=== PATIENT | female | born 1960 | race African-American/Black ===

== ENCOUNTER 2016-11-13 23:51 | Emergency (ER) | payer MEDICAID ==
[2016-11-14 00:20] LABS: % EOSINOPHILS 0.7 % (0.0-5.0); % MONOCYTES 2.3 % (2.0-10.0); HEMATOCRIT 37.4 % (41.0-60); HEMOGLOBIN 12.7 gm/dL (12-16); MEAN CORPUSCULAR HEMOGLOBIN 27.5 pg (27.0-31.0); MEAN PLATELET VOLUME 8.6 fl; NEUTROPHILE ABSOLUTE 8.2 Th/cmm (1.8-8.0); RED BLOOD COUNT 4.61 Mil/cmm (3.80-5.10); RED CELL DISTRIBUTION WIDTH 13.8 % (11.5-20.0)
[2016-11-14] MEDS ORDERED: Sodium Chloride 0.9% 1,000 ML IV SCH (00:30)
--- NOTE | 2016-11-14 00:33 | ED Physician Chart ---
ED Chief Complaint/HPI - Patient Information Date Seen:: 11/14/16 Time Seen:: 00:15 Chief Complaint:: vomiting and diarrhea History of Present Illness:: location; abdomen quality: vomiting and diarrhea severity: mild, mod duration: couple of hours context: pt with onset of diarrhe and vomiting and stomach cramps simultaneously about one hour after eating some chicken. reports vomiting essentially undigested food. pain is sharp, crampy located at mid abdomen, no fever, no chest pain, no sob. no flank pain. no dysuria. did not take anything for this pain. mod factors: none assoc s/s; none hx from pt. Allergies:: Allergies Allergy/AdvReac Type Severity Reaction Status Date / Time No Known Allergies Allergy Verified 11/13/16 23:57 Vitals:: Vital Signs - 8 hr 11/13/16 23:55 Temp 97.2 F HR 85 RR 20 BP 170/130 O2 Sat % 96 Historian:: Patient Review:: Nurse's Note Reviewed ED Review of Systems - Review of Systems General/Constitutional: No fever, No chills, No weight loss, No weakness, No diaphoresis, No edema, No loss of appetite Skin: No skin lesions, No rash, No bruising Head: No headache, No light-headedness Eyes: No loss of vision, No pain, No diplopia ENT: No earache, No nasal drainage, No sore throat, No tinnitus Neck: No neck pain, No swelling, No thyromegaly, No stiffness, No mass noted Cardio Vascular: No chest pain, No palpitations, No PND, No orthopnea, No edema Pulmonary: No SOB, No cough, No sputum, No wheezing GI: Nausea, Vomiting, Diarrhea, Pain, No melena, No hematochezia, No constipation, No hematemesis G/U: No dysuria, No frequency, No hematuria Musculoskeletal: No bone or joint pain, No back pain, No muscle pain Endocrine: No polyuria, No polydipsia Psychiatric: No prior psych history, No depression, No anxiety, No suicidal ideation Hematopoietic: No bruising, No lymphadenopathy Allergic/Immuno: No urticaria, No angioedema Neurological: No syncope, No focal symptoms, No weakness, No paresthesia, No headache, No seizure, No dizziness, No confusion, No vertigo ED Past Medical History - Past Medical History Past Medical History: Renal stone Family History: None Social History: Non Smoker, No Alcohol, No Drug Use, Surgical History: other (BTL) Psychiatricy History: None Medication: None Family Medical History - Family Member Mother History Unknown: Yes Father History Unknown: Yes Ethnicity: Non- Living Status: Hx Family Hypertension: Yes ED Physical Exam - Physical Examination General/Constitutional: Awake, Well-developed, well-nourished, Alert, No distress, GCS 15, Non-toxic appearing, Ambulatory Head: Atraumatic Eyes: Lids, conjuctiva normal, PERRL, EOMI Skin: Nl inspection, No rash, No skin lesions, No ecchymosis, Well hydrated, No lymphadenopathy ENMT: External ears, nose nl, Nasal exam nl, Lips, teeth, gums nl Neck: Nontender, Full ROM w/o pain, No JVD, No nuchal rigidity, No bruit, No mass, No stridor Respiratory: Nl effort/Exclusion, Clear to Auscultation, No Wheeze/Rhonchi/Rales Cardio Vascular: RRR, No murmur, gallop, rubs, NL S1 S2 GI: No tenderness/rebounding/guarding (mild tenderness epigastrium, no rebound, no guarding. ), No organomegaly, No hernia, Normal BS's, Nondistended, No mass/ bruits, No McBurney tenderness : No CVA tenderness Extremities: No tenderness or effusion, Full ROM, normal strength in all extremities, No edema, Normal digits & nails Neuro/Psych: Alert/oriented, Judgement/insight normal, Mood normal, Normal gait , No focal deficits Misc: Normal back, No paraspinal tenderness ED Assessment - Assessment General Assessment: medical decision making pt with history and exam consistent with food poisoning. pt has known history of kidney stone right side, no right sided flank pain. or left sided flank pain. was seen in [facility] one month ago with abdominal pain had CT scan was told CT scan was normal. labs essentially WNL, symptoms started about 2 or 3 hours ago. will treat at food poisoning/traveler's diarrhea. will give cipro 500mg po bid x 5 days script. and advise liquids only for 3 days and then slow transition to regular food over next 3 days. pt states she understands and will follow physician advice. advised to FU with physician tomorrow or return sooner for any worsening. ED Septic Shock - . Is Septic Shock (SBP<90, OR Lactate>4 mmol\L) present?: No - <6hrs of presentation: Vital Signs: Vital Signs - 8 hr 11/13/16 23:55 Temp 97.2 F HR 85 RR 20 BP 170/130 O2 Sat % 96 ED Reassessment (Disposition) - Reassessment Reassessment:: pt stable while in ER Reassessment Condition:: Unchanged, Improved - Diagnosis Diagnosis:: Food poisoning/traveler's diarrhea - Aftercare/Follow up Instructions Aftercare/Follow-Up Instructions:: Counseled pt regarding lab results/diagnosis & need follow up, Refer to Discharge Instructions Notes:: go to doctor for recheck tomorrow return for any worsening Medication Prescribed:: ciprofloxacin 500mg po bid x 5 days - Patient Disposition Discharge/Transfer:: Home Condition at Disposition:: Stable, Improved
[2016-11-14 00:34] LABS: WHITE BLOOD COUNT 10.3 Th/cmm (4.8-10.8)
[2016-11-14 00:35] LABS: PLATELET COUNT 362 Th/cmm (150-400)
[2016-11-14 01:01] LABS: ALB/GLOB RATIO 1.4 (1.0-1.8); ALKALINE PHOSPHATASE 84 U/L (34-104); AMYLASE SERUM 45 U/L (29-103); ANION GAP 12.8 (7.0-16.0); BILIRUBIN,TOTAL 0.5 mg/dL (0.3-1.0); BUN - UREA NITROGEN 14 mg/dL (7-25); BUN/CREATININE RATIO 17.5; CARBON DIOXIDE 24.4 mEq/L (21.0-31.0); CHLORIDE 101 mEq/L (98-107); CREATININE - SERUM 0.8 mg/dL (0.6-1.2); GLUCOSE 126 mg/dL (70-105); LIPASE 23 U/L (11-82); POTASSIUM SERUM 3.2 mEq/L (3.5-5.1); SGOT 21 U/L (13-39); SGPT/ALT 8 U/L (7-52); SODIUM SERUM 135 mEq/L (136-145)
[2016-11-14] MEDS ORDERED: HYDROmorphone 1 mg/mL 1mL Syr IM STA (01:20)
[2016-11-14] MEDS ORDERED: HYDROmorphone 1 mg/mL 1mL Syr ONE (01:30)
== END 2016-11-14 02:11 | disposition home or self-care (01) ==
LOC: ER 23:51
DX: A08.8 Other specified intestinal infections (principal); T62.91XA Toxic effect of unspecified noxious substance eaten as food, accidental (unintentional), initial encounter; Y92.89 Other specified places as the place of occurrence of the external cause
CPT/HCPCS: 99284; 96372 ×2; 96374; 96375; 36415; 85025; 82150; 83690; 80053; J1885; J2405; J1170; J7030; Z7502

== ENCOUNTER 2018-03-25 03:45 | Inpatient (IN) | payer MEDICAID ==
[2018-03-25] MEDS ORDERED: Sodium Chloride 0.9% 1,000 ML IV ONE (04:22)
--- NOTE | 2018-03-25 04:24 | ED Physician Chart ---
ED Chief Complaint/HPI - Patient Information Date Seen:: 03/25/18 Time Seen:: 04:20 Chief Complaint:: vomiting diarhea History of Present Illness:: 58 yr old bf with vomiting diarhea was at [facility] and they gave her bactrim and flagyl which may have made her sxs worse Allergies:: Allergies Allergy/AdvReac Type Severity Reaction Status Date / Time No Known Allergies Allergy Verified 11/13/16 23:57 Vitals:: Vital Signs - 8 hr 03/25/18 03:50 Temp 98.1 F HR 93 RR 18 BP 154/101 O2 Sat % 100 ED Review of Systems - Review of Systems General/Constitutional: No fever, No chills, No weight loss, No weakness, No diaphoresis, No edema, No loss of appetite Skin: No skin lesions, No rash, No bruising Head: No headache, No light-headedness Eyes: No loss of vision, No pain, No diplopia ENT: No earache, No nasal drainage, No sore throat, No tinnitus Neck: No neck pain, No swelling, No thyromegaly, No stiffness, No mass noted Cardio Vascular: No chest pain, No palpitations, No PND, No orthopnea, No edema Pulmonary: No SOB, No cough, No sputum, No wheezing GI: Vomiting, Diarrhea G/U: No dysuria, No frequency, No hematuria Musculoskeletal: No bone or joint pain, No back pain, No muscle pain Endocrine: No polyuria, No polydipsia Psychiatric: No prior psych history, No depression, No anxiety, No suicidal ideation Hematopoietic: No bruising, No lymphadenopathy Allergic/Immuno: No urticaria, No angioedema Neurological: No syncope, No focal symptoms, No weakness, No paresthesia, No headache, No seizure, No dizziness, No confusion, No vertigo ED Past Medical History - Past Medical History Past Medical History: HTN Family Medical History - Family Member Mother History Unknown: Yes Father History Unknown: Yes Ethnicity: Non- Living Status: Still Living Hx Family Cancer: No Hx Family Coronary Artery Disease: No Hx Family Congestive Heart Failure: No Hx Family Hypertension: No Hx Family Stroke: No Hx Family Diabetes: Yes Hx Family Seizures: No Hx Family Dementia: No Hx Family AIDS: No Hx Family HIV: No Hx Family COPD: No Hx Family Hepatitis: No Hx Family Psychiatric Problems: No Hx Family Tuberculosis: No ED Physical Exam - Physical Examination General/Constitutional: Awake, Well-developed, well-nourished, Alert, No distress, GCS 15, Non-toxic appearing, Ambulatory Head: Atraumatic Eyes: Lids, conjuctiva normal, PERRL, EOMI Skin: Nl inspection, No rash, No skin lesions, No ecchymosis, Well hydrated, No lymphadenopathy ENMT: External ears, nose nl, Nasal exam nl, Lips, teeth, gums nl Neck: Nontender, Full ROM w/o pain, No JVD, No nuchal rigidity, No bruit, No mass, No stridor Respiratory: Nl effort/Exclusion, Clear to Auscultation, No Wheeze/Rhonchi/Rales Cardio Vascular: RRR, No murmur, gallop, rubs, NL S1 S2 GI: No tenderness/rebounding/guarding, No organomegaly, No hernia, Normal BS's, Nondistended, No mass/bruits, No McBurney tenderness : No CVA tenderness Extremities: No tenderness or effusion, Full ROM, normal strength in all extremities, No edema, Normal digits & nails Neuro/Psych: Alert/oriented, DTR's symmetric, Normal sensory exam, Normal motor strength, Judgement/insight normal, Mood normal, Normal gait, No focal deficits Misc: Normal back, No paraspinal tenderness ED Assessment - Assessment General Assessment: vomiting diarhea ED Septic Shock - . Is Septic Shock (SBP<90, OR Lactate>4 mmol\L) present?: No - <6hrs of presentation: Vital Signs: Vital Signs - 8 hr 03/25/18 03:50 Temp 98.1 F HR 93 RR 18 BP 154/101 O2 Sat % 100 ED Reassessment (Disposition) - Reassessment Reassessment:: vomiting diarhea - Diagnosis Diagnosis:: vomiting diarhea dark urine - Patient Disposition Condition at Disposition:: Stable
[2018-03-25 04:47] LABS: % BASOPHILS 0.3 % (0.0-2.0); % EOSINOPHILS 11.8 % (0.0-5.0); % MONOCYTES 9.5 % (2.0-10.0); % NEUTROPHILS 66.4 % (40.0-80.0); HEMATOCRIT 42.4 % (41.0-60); HEMOGLOBIN 13.8 gm/dL (12-16); MEAN CELL VOLUME 80.8 fl (81-100); MEAN CORPUSCULAR HEMOGLOBIN 26.2 pg (27.0-31.0); MEAN CORPUSCULAR HGB CONC 32.4 pg (28.0-36.0); MEAN PLATELET VOLUME 9.2 fl; MONOCYTE ABSOLUTE 0.8 Th/cmm (0.3-1.0); NEUTROPHILE ABSOLUTE 5.7 Th/cmm (1.8-8.0); PLATELET COUNT 336 Th/cmm (150-400); RED BLOOD COUNT 5.25 Mil/cmm (3.80-5.10); RED CELL DISTRIBUTION WIDTH 13.5 % (11.5-20.0); WHITE BLOOD COUNT 8.5 Th/cmm (4.8-10.8)
[2018-03-25 04:49] LABS: URINE SOURCE CLEAN C
[2018-03-25] MEDS ORDERED: Acetaminophen 500 MG TAB PO ONE (04:51)
[2018-03-25] MEDS ORDERED: Acetaminophen 500 MG TAB ONE (04:53)
[2018-03-25 05:00] LABS: URINE BILIRUBIN SMALL (NEGATIVE); URINE BLOOD TRACE (NEGATIVE); URINE GLUCOSE (UA) NEGATIVE (NEGATIVE); URINE KETONE 40 mg/dL (NEGATIVE); URINE LEUKOCYTE ESTERASE TRACE (NEGATIVE); URINE MICROSCOPIC INDICATED? YES; URINE NITRATE POSITIVE (NEGATIVE); URINE PROTEIN 30 mg/dL (NEGATIVE)
[2018-03-25 05:03] LABS: ALB/GLOB RATIO 1.7 (1.0-1.8); ALBUMIN 4.7 gm/dL (3.7-5.3); ALKALINE PHOSPHATASE 80 U/L (34-104); ANION GAP 13.8 (7.0-16.0); BILIRUBIN,TOTAL 0.4 mg/dL (0.3-1.0); BUN - UREA NITROGEN 9 mg/dL (7-25); CALCIUM SERUM 9.5 mg/dL (8.6-10.3); CARBON DIOXIDE 24.2 mEq/L (21.0-31.0); CHLORIDE 99 mEq/L (98-107); CREATININE - SERUM 0.9 mg/dL (0.6-1.2); GFR AFRICAN-AMERICAN > 60.0 ml/min (>90); GFR NON AFRICAN-AMERICAN > 60.0 ml/min; GLUCOSE 121 mg/dL (70-105); SGOT 16 U/L (13-39); SGPT/ALT 7 U/L (7-52); SODIUM SERUM 134 mEq/L (136-145); TOTAL PROTEIN,SERUM 7.4 gm/dL (6.0-8.3)
[2018-03-25] MEDS ORDERED: Potassium Chloride 20 mEq ER Tab PO ONE ×2 (05:44→05:47)
[2018-03-25 05:55] LABS: URINE CLARITY CLOUDY (CLEAR); URINE COLOR YELLOW
[2018-03-25 05:58] LABS: URINE EPITHELIAL CELLS RARE /lpf (FEW); URINE RBC 0-2 /hpf (0-5); URINE WBC 0-2 /hpf (0-5)
[2018-03-25 05:59] LABS: URINE OTHER CRYSTALS MODERATE /hpf
[2018-03-25 06:00] LABS: URINE BACTERIA OCCASIONAL /hpf (NONE SEEN)
[2018-03-25 06:03] LABS: URINE TRIPLE PHOSPHATE CRYSTAL MODERATE /hpf (FEW)
[2018-03-25] MEDS ORDERED: cefTRIAXone 1 GM in Sodium Chloride 0.9% 50 ML IV ONE (07:15)
[2018-03-25] MEDS ORDERED: Morphine Sulfate 2 mg/mL 1mL Syr IVP PRN (07:58)
[2018-03-25] MEDS ORDERED: Ipratropium Neb 0.5 mg/2.5 mL UD IH PRN (07:58)
[2018-03-25] MEDS ORDERED: Albuterol Nebulizer 2.5mg/3mL HHN PRN (07:58)
--- NOTE | 2018-03-25 09:15 | Diagnostic Imaging Report ---
CT scan abdomen and pelvis without intravenous contrast HISTORY: Diarrhea, vomiting Total DLP equals 431 CTDI equals 9.8 Axial sections were obtained from the xiphoid process down to the pubic symphysis. The liver exhibits a normal size and contour. No focal lesions. The spleen appears normal. No focal abnormality seen within the pancreas. There is an approximate 6 mm calculus within the medullary region of the right kidney without hydronephrosis. No significant change compared to a prior study of January 28, 2017. The left kidney is unremarkable. The exam of the pelvis demonstrates preservation of normal fat planes. No abnormal soft tissue masses or abnormal fluid collections. No bowel dilatation. IMPRESSION: 1. No definite acute abnormalities 2. Nonobstructing right renal calculus unchanged compared to a prior study of January 28, 2017.
[2018-03-25] MEDS: Levofloxacin 500mg/100mL 500 MG/100 ML BAG IV SCH (09:41)
[2018-03-25] MEDS: D5-0.9%NS 1,000 ML IV SCH ×2 (09:42→22:03)
--- NOTE | 2018-03-25 13:40 | History & Physical ---
ADMIT DATE: 03/25/2018 CHIEF COMPLAINT: Vomiting and diarrhea x 1 week. HISTORY OF PRESENT ILLNESS: This is a 58-year-old -[place]inames[place] female who has a 1-week history of vomiting and diarrhea. The patient was recently at [facility] for chronic constipation, vomiting, diarrhea. The patient states that she was constipated for about 2 months and she took some laxative that made her have intractable vomiting and diarrhea. When the patient was brought to [facility], the patient was given Bactrim and Flagyl for urinary tract infection. The patient states that she was not admitted. Due to her worsening symptoms the patient is now here at [facility]. PAST MEDICAL HISTORY: Hypertension. ALLERGIES: No drug allergies. SOCIAL HISTORY: The patient denies any alcohol or illicit drug usage. FAMILY HISTORY: Denies any diabetes or CAD. REVIEW OF SYSTEMS: GENERAL: Denies any fever and chills. CARDIOVASCULAR: Denies chest pain. RESPIRATORY: Denies shortness of breath. GASTROINTESTINAL: Denies nausea, vomiting, abdominal pain at this time. GENITOURINARY: Denies increased frequency. NEUROLOGIC: No headaches, seizures, or syncope. All systems are reviewed and are negative. PHYSICAL EXAMINATION: GENERAL: The patient is well developed, well nourished, in no apparent distress. VITAL SIGNS: Temperature 99.9, heart rate 76, blood pressure 176/90, respirations 18, O2 of 100%. HEENT: Head normocephalic, atraumatic. NECK: Supple. No mass. LUNGS: Clear bilaterally. HEART: Regular rhythm. ABDOMEN: Soft, nontender. LABORATORY DATA: WBC 8.5, H and H 13.8 and 42.4, platelets of 336. Sodium 134, potassium 3.0, chloride 99, BUN 9, creatinine 0.9. The patient had a urinalysis done, positive for UTI. DIAGNOSTICS: The patient had a CT of the abdomen and pelvis, impression is no definite acute abnormalities, nonobstructive right renal calculus, unchanged compared to prior study of 01/28/2017. ASSESSMENT: Intractable vomiting, which is stable at this time, acute kidney stones, acute urinary tract infection, hyponatremia, hypokalemia, hypertension. PLAN: The patient to be admitted to Med/Surg unit. We would give the patient IV fluids for hydration. Nurses to strain urine for any possible stones. IV antibiotic of Levaquin. Replace potassium as needed. We will get followup labs for tomorrow morning. Due to the patient's elevated blood pressure, we will add lisinopril and Norvasc as well. We will continue to monitor this patient. JOB# [id number]
[2018-03-26 06:20] LABS: EOSINOPHILE ABSOLUTE 1.2 Th/cmm (0.1-0.4); HEMATOCRIT 35.3 % (41.0-60); HEMOGLOBIN 11.7 gm/dL (12-16); MEAN CELL VOLUME 81.3 fl (81-100); MEAN CORPUSCULAR HGB CONC 33.2 pg (28.0-36.0); MEAN PLATELET VOLUME 8.7 fl; MONOCYTE ABSOLUTE 1.1 Th/cmm (0.3-1.0); NEUTROPHILE ABSOLUTE 2.2 Th/cmm (1.8-8.0); PLATELET COUNT 256 Th/cmm (150-400); RED BLOOD COUNT 4.34 Mil/cmm (3.80-5.10); WHITE BLOOD COUNT 5.5 Th/cmm (4.8-10.8)
[2018-03-26 06:39] LABS: ANION GAP 10.2 (7.0-16.0); BUN - UREA NITROGEN 3 mg/dL (7-25); CALCIUM SERUM 8.6 mg/dL (8.6-10.3); CARBON DIOXIDE 24.3 mEq/L (21.0-31.0); CHLORIDE 108 mEq/L (98-107); CREATININE - SERUM 0.7 mg/dL (0.6-1.2); GFR AFRICAN-AMERICAN > 60.0 ml/min (>90); GFR NON AFRICAN-AMERICAN > 60.0 ml/min; GLUCOSE 110 mg/dL (70-105); POTASSIUM SERUM 3.5 mEq/L (3.5-5.1); SODIUM SERUM 139 mEq/L (136-145)
[2018-03-26 07:18] LABS: BAND NEUTROPHILE 0 % (0-10); BASOPHIL 0 % (0-3); EOSINOPHIL 18 % (0-5); LYMPHOCYTE 20 % (20-50); MONOCYTE 20 % (2-10); NEUTROPHILS 42 % (40-80)
[2018-03-26 07:56] VITALS: BP 180/94
[2018-03-26] MEDS: Levofloxacin 500mg/100mL 500 MG/100 ML BAG IV SCH (11:36)
--- NOTE | 2018-03-26 14:40 | Internal Medicine Prog Note ---
Internal Medicine Subjective - Subjective Service Date: 03/26/18 (denies any nausea/vomiting or abd pain asking for regular diet) Patient is:: awake, verbal Per staff patient has:: tolerating meds Internal Medicine Objective - Results Result Diagrams: 03/26/18 05:30 03/26/18 05:30 Recent Labs: Laboratory Last Values WBC 5.5 Th/cmm (4.8-10.8) 03/26/18 05:30 RBC 4.34 Mil/cmm (3.80-5.10) 03/26/18 05:30 Hgb 11.7 gm/dL (12-16) L 03/26/18 05:30 Hct 35.3 % (41.0-60) L 03/26/18 05:30 MCV 81.3 fl (81-100) 03/26/18 05:30 MCH 27.0 pg (27.0-31.0) 03/26/18 05:30 MCHC Differential 33.2 pg (28.0-36.0) 03/26/18 05:30 RDW 14.0 % (11.5-20.0) 03/26/18 05:30 Plt Count 256 Th/cmm (150-400) 03/26/18 05:30 MPV 8.7 fl 03/26/18 05:30 Add Manual Diff YES 03/26/18 05:30 Neutrophils % 66.4 % (40.0-80.0) 03/25/18 04:35 Band Neutrophils % 0 % (0-10) 03/26/18 05:30 Lymphocytes % 12.0 % (20.0-50.0) L 03/25/18 04:35 Monocytes % 9.5 % (2.0-10.0) 03/25/18 04:35 Eosinophils % 11.8 % (0.0-5.0) H 03/25/18 04:35 Basophils % 0.3 % (0.0-2.0) 03/25/18 04:35 Neutrophils (Manual) 42 % (40-80) 03/26/18 05:30 Lymphocytes 20 % (20-50) 03/26/18 05:30 Monocytes 20 % (2-10) H 03/26/18 05:30 Eosinophils 18 % (0-5) H 03/26/18 05:30 Basophils 0 % (0-3) 03/26/18 05:30 Sodium 139 mEq/L (136-145) 03/26/18 05:30 Potassium 3.5 mEq/L (3.5-5.1) 03/26/18 05:30 Chloride 108 mEq/L (98-107) H 03/26/18 05:30 Carbon Dioxide 24.3 mEq/L (21.0-31.0) 03/26/18 05:30 Anion Gap 10.2 (7.0-16.0) 03/26/18 05:30 BUN 3 mg/dL (7-25) L 03/26/18 05:30 Creatinine 0.7 mg/dL (0.6-1.2) 03/26/18 05:30 Est GFR ( Amer) > 60.0 ml/min (>90) 03/26/18 05:30 Est GFR (Non-Af Amer) > 60.0 ml/min 03/26/18 05:30 BUN/Creatinine Ratio 4.3 03/26/18 05:30 Glucose 110 mg/dL (70-105) H 03/26/18 05:30 POC Glucose 146 MG/DL (70 - 105) H 03/25/18 08:36 Calcium 8.6 mg/dL (8.6-10.3) 03/26/18 05:30 Total Bilirubin 0.4 mg/dL (0.3-1.0) 03/25/18 04:35 AST 16 U/L (13-39) 03/25/18 04:35 ALT 7 U/L (7-52) 03/25/18 04:35 Alkaline Phosphatase 80 U/L (34-104) 03/25/18 04:35 Total Protein 7.4 gm/dL (6.0-8.3) 03/25/18 04:35 Albumin 4.7 gm/dL (3.7-5.3) 03/25/18 04:35 Globulin 2.7 gm/dL 03/25/18 04:35 Albumin/Globulin Ratio 1.7 (1.0-1.8) 03/25/18 04:35 Urine Source CLEAN C 03/25/18 04:09 Urine Color YELLOW 03/25/18 04:09 Urine Clarity CLOUDY (CLEAR) H 03/25/18 04:09 Urine pH 6.0 (4.6 - 8.0) 03/25/18 04:09 Ur Specific [place] >= 1.030 (1.005-1.030) 03/25/18 04:09 Urine Protein 30 mg/dL (NEGATIVE) H 03/25/18 04:09 Urine Glucose (UA) NEGATIVE mg/dL (NEGATIVE) 03/25/18 04:09 Urine Ketones 40 mg/dL (NEGATIVE) H 03/25/18 04:09 Urine Blood TRACE (NEGATIVE) 03/25/18 04:09 Urine Nitrate POSITIVE (NEGATIVE) H 03/25/18 04:09 Urine Bilirubin SMALL (NEGATIVE) H 03/25/18 04:09 Urine Urobilinogen 1.0 E.U./dL (0.2 - 1.0) 03/25/18 04:09 Ur Leukocyte Esterase TRACE (NEGATIVE) H 03/25/18 04:09 Urine RBC 0-2 /hpf (0-5) 03/25/18 04:09 Urine WBC 0-2 /hpf (0-5) 03/25/18 04:09 Ur Epithelial Cells RARE /lpf (FEW) 03/25/18 04:09 Triple Phos Crystals MODERATE /hpf (FEW) 03/25/18 04:09 Other Crystals MODERATE /hpf 03/25/18 04:09 Urine Bacteria OCCASIONAL /hpf (NONE SEEN) 03/25/18 04:09 - Physical Exam Vitals and I&O: Vital Signs Temp 99.6 F 03/26/18 11:20 Pulse 78 03/26/18 11:20 Resp 18 03/26/18 11:20 BP 177/95 03/26/18 11:20 Pulse Ox 99 03/26/18 11:20 Intake & Output 03/25/18 03/26/18 03/26/18 18:59 06:59 18:59 Intake Total 100 1480 Balance 100 1480 Weight (lbs) 150 lb 157 lb 12.8 oz Intake: Intake, IV Amount 100 1000 D5-0.9%Ns 1,000 ml @ 100 1000 mls/hr IV .Q10H [facility] Rx#: [id number] Levofloxacin 500mg/100mL 100 500 mg In 100 ml @ 100 mls/hr IV Q24HR [facility] Rx#: [id number] Oral 480 Other: # Voids 3 # Bowel Movements 0 Weight Source Bedscale Active Medications: Current Medications Acetaminophen (Tylenol) 650 mg PO Q4H PRN PRN Reason: Pain Or Fever above 101 Stop: 05/24/18 07:57 Last Admin: 03/25/18 20:28 Dose: 650 mg Albuterol Sulfate (Albuterol 2.5mg/3ml Neb Ud) 2.5 mg HHN Q2HRT PRN PRN Reason: Shortness of Breath or Wheeze Stop: 05/24/18 07:57 Last Admin: 03/25/18 20:28 Dose: 2.5 mg Amlodipine Besylate (Norvasc) 5 mg PO DAILY [facility] Stop: 05/24/18 13:29 Last Admin: 03/26/18 08:15 Dose: 5 mg Dextrose/Sodium Chloride (D5-0.9%Ns) 1,000 mls @ 100 mls/hr IV .Q10H [facility] Stop: 05/24/18 07:59 Last Admin: 03/25/18 22:03 Dose: 100 mls/hr Levofloxacin (Levaquin Pb) 500 mg in 100 mls @ 100 mls/hr IV Q24HR [facility] Stop: 05/24/18 09:59 Last Admin: 03/26/18 11:36 Dose: 100 mls/hr Ipratropium Brea (Atrovent Neb 0.5mg/2.5ml) 0.5 mg IH Q2HRT PRN PRN Reason: Shortness of Breath or Wheeze Stop: 05/24/18 07:57 Last Admin: 03/25/18 20:28 Dose: 0.5 mg Lisinopril (Zestril) 20 mg PO DAILY [facility] Stop: 05/24/18 13:29 Last Admin: 03/26/18 08:15 Dose: 20 mg Morphine Sulfate (Morphine) 1 mg IVP Q6H PRN PRN Reason: Pain (Severe) Stop: 05/24/18 07:57 Ondansetron HCl (Zofran) 4 mg IV Q8H PRN PRN Reason: Nausea / Vomiting Stop: 05/24/18 07:57 Zolpidem Tartrate (Ambien) 10 mg PO HS PRN PRN Reason: Insomnia Stop: 05/24/18 07:57 Last Admin: 03/25/18 22:38 Dose: 10 mg General: alert HEENT: NC/AT, PERRLA Neck: Supple Lungs: CTAB Cardiovascular: RRR Abdomen: soft, non-tender Extremities: clear Neurological: alert - Procedures Procedures: Procedures Procedure Code Date EXCISION OF STOMACH, ENDO, DIAGN [id number] 01/12/16 Internal Medicine Assmt/Plan - Assessment Assessment: ASSESSMENT: Intractable vomiting, which is stable at this time, acute kidney stones, acute urinary tract infection, hyponatremia, hypokalemia, hypertension. - Plan Plan: switch diet to cardiac diet as patient is not having any nausea continue iv levaquin am labs dc planning tmw if no interventions will be done re. kidney stones. continue ivf
[2018-03-26] MEDS: D5-0.9%NS 1,000 ML IV SCH (17:01)
[2018-03-27] MEDS: D5-0.9%NS 1,000 ML IV SCH (03:29)
[2018-03-27 05:15] LABS: HEMATOCRIT 35.4 % (41.0-60); HEMOGLOBIN 11.5 gm/dL (12-16); MEAN CELL VOLUME 82.3 fl (81-100); MEAN CORPUSCULAR HEMOGLOBIN 26.7 pg (27.0-31.0); MEAN CORPUSCULAR HGB CONC 32.4 pg (28.0-36.0); MEAN PLATELET VOLUME 8.9 fl; PLATELET COUNT 261 Th/cmm (150-400); RED CELL DISTRIBUTION WIDTH 14.3 % (11.5-20.0); WHITE BLOOD COUNT 4.9 Th/cmm (4.8-10.8)
[2018-03-27 05:17] LABS: ANION GAP 11.4 (7.0-16.0); BUN - UREA NITROGEN 3 mg/dL (7-25); CALCIUM SERUM 8.6 mg/dL (8.6-10.3); CARBON DIOXIDE 25.6 mEq/L (21.0-31.0); CHLORIDE 105 mEq/L (98-107); CREATININE - SERUM 0.6 mg/dL (0.6-1.2); GFR AFRICAN-AMERICAN > 60.0 ml/min (>90); GFR NON AFRICAN-AMERICAN > 60.0 ml/min; GLUCOSE 120 mg/dL (70-105); SODIUM SERUM 139 mEq/L (136-145)
[2018-03-27 05:55] LABS: BAND NEUTROPHILE 6 % (0-10); EOSINOPHIL 8 % (0-5); LYMPHOCYTE 30 % (20-50); MONOCYTE 8 % (2-10); NEUTROPHILS 48 % (40-80); PLATELET ESTIMATE ADEQUATE (NORMAL)
[2018-03-27] MEDS ORDERED: Potassium Chloride 20 mEq ER Tab PO ONE (08:48)
[2018-03-27] MEDS ORDERED: Potassium Chloride 20 mEq ER Tab PO SCH (09:00)
[2018-03-27] MEDS: Levofloxacin 500mg/100mL 500 MG/100 ML BAG IV SCH (09:18)
--- NOTE | 2018-03-27 14:11 | Consultation ---
DATE OF CONSULTATION: REASON FOR CONSULTATION: "Seen for a right kidney stone" which is actually a calcification. HISTORY OF PRESENT ILLNESS: The patient is a 58-year-old, was admitted with a 1-week history of diarrhea and vomiting. She was treated early at [facility] for constipation and vomiting and diarrhea, and this was going on for 2 months prior to that visit. She treated herself with laxatives and then started having the diarrhea. She was treated with Bactrim and Flagyl at [place] for assumed urinary tract infection and sent home. She returns with similar symptoms of vomiting and diarrhea, but no dysuria or hematuria, flank pain or difficulty urinating. She has never had these symptoms, but 2 years ago, had some lower abdominal pain that was diagnosed being from a kidney stone due to the CT scan showing a 6 mm calcification in the right kidney, however, in the medullary portion and not in the collecting system. Since then in the 2-year, she has never had a problem with stones and stone related symptoms, and again this time, symptoms are gastroenteritis and not of the stone. The CT scan this time 2 years later shows the same identical calcification in the region of the right renal pelvis, but it is outside the collecting system and not really a kidney stone. She has never had an operation on the kidneys or UTIs or pyelonephritis in the past. MEDICAL HISTORY: Hypertension. PAST SURGICAL HISTORY: Tubal ligation. ALLERGIES: None. SOCIAL HISTORY: Unremarkable. HOME MEDICATIONS: Not listed, but are those for the hypertension. REVIEW OF SYSTEMS: She had vomiting and diarrhea, but no fever. Denied any dysuria, hematuria or flank pain. No chest pain, coughing or shortness of breath. Denied sore throat or difficulty swallowing. No vision change. Denied headache or seizures. No fever or chills. No skin rash or joint swelling. PHYSICAL EXAMINATION: GENERAL: On exam, she is awake and alert and comfortable. Her diarrhea and vomiting have subsided with antibiotics given empirically and symptomatic therapy. VITAL SIGNS: Her temperature is 98.5, heart rate 62, blood pressure 154/89. T-max has been 100 degrees in the hospital. HEAD AND NECK: Normocephalic. Trachea central. Pupils equal and reactive. No jaundice. Thyroid and lymph nodes not palpable. Carotid bruit absent. CHEST: Symmetrical. LUNGS: Clear. No rales or rhonchi. HEART: Sounds normal in sinus rhythm, no murmur. ABDOMEN: Soft, nontender, no organomegaly, mass or hernia. Flanks are nontender to percussion. EXTREMITIES: No edema or lymphadenopathy. NEUROLOGIC: Nonfocal. Moves all 4 limbs. LABORATORY DATA: Blood cultures are negative. No urine culture was done. White count has been normal throughout, currently 4.9. Hemoglobin stable at 11.5. Electrolytes stable. No bandemia. BUN 3, creatinine 0.6. Urinalysis on admission showed ketones, nitrites, but no white cells or red cells and only occasional bacteria, really is not consistent with a UTI. CT scan showed that this calculus or calcification, since it is not in the collecting system and does not cause any obstruction or hydronephrosis. There are no other abnormalities seen in the CT scan. Once again this is unchanged from CT 2 years ago. IMPRESSION: 1. Right renal calcification and not really a kidney stone, requires no followup or urology care. 2. Gastroenteritis, now improved. Etiology not established. 3. Hypertension, stable. [facility]# [id number]
--- NOTE | 2018-03-27 20:05 | Discharge Summary ---
DATE OF DISCHARGE: 03/27/2018 CHIEF COMPLAINT: Intractable vomiting. FINAL DIAGNOSES: Intractable vomiting, gastroenteritis, anemia, hypokalemia, hypertension, right kidney calcification, and electrolyte abnormalities. HISTORY: This is 58-year-old female with history of vomiting, diarrhea. The patient was seen initially at [facility] ER and was given Bactrim and Flagyl for urinary tract infection. The patient went home, but could not stop vomiting. The patient presented to the ER and admitted for further management. PHYSICAL EXAMINATION: VITAL SIGNS: Blood pressure 150/89, respirations 14, pulse 62, temperature 98.1. GENERAL: Elderly female, appears her stated age. NECK: Supple. No mass. LUNGS: Decreased breath sounds. Clear to auscultation. HEART: Regular rate and rhythm without appreciable murmur. ABDOMEN: Soft, nontender. EXTREMITIES: No clubbing, cyanosis or edema. HOSPITAL COURSE: The patient was admitted to medical floor to continue IV hydration and then started on IV hydration and IV antibiotic. Urine culture was negative. The patient was referred to Dr. Villalobos to confirm that there is a calcification, but not distinct stone. No intervention needs to be done. CONDITION ON DISCHARGE: Fair. DISCHARGE INSTRUCTIONS: The patient to follow with her primary care doctor and may possibly need Urology as an outpatient. This was related to the patient. She understands. She will follow with her regular physician. JOB# [id number]
== END 2018-03-27 15:05 | disposition home or self-care (01) | DRG 249 ==
LOC: ER 03:45 → MSI 07:53
PROVIDERS: ADMIT Internal Medicine; ATTEND Internal Medicine
DX: K52.9 Noninfective gastroenteritis and colitis, unspecified (principal); E87.1 Hypo-osmolality and hyponatremia; N39.0 Urinary tract infection, site not specified; N20.0 Calculus of kidney; E87.6 Hypokalemia; I10 Essential (primary) hypertension; K59.09 Other constipation; D64.9 Anemia, unspecified; Z98.51 Tubal ligation status
CPT/HCPCS: 36415-UA; 80048-TC; 80053-TC; 81001-TC; 82948-90; 85007-TC; 85025-TC; 87086-90; 90779; 94760; 96375; J0696; J1956; J2405; J7030; J7042; J7613; Z7610

== ENCOUNTER 2018-09-18 00:15 | Emergency (ER) | payer MEDICAID ==
[2018-09-18] MEDS ORDERED: Sodium Chloride 0.9% 1,000 ML IV ONE (00:57)
--- NOTE | 2018-09-18 01:05 | ED Physician Chart ---
ED Chief Complaint/HPI - Patient Information Date Seen:: 09/18/18 Time Seen:: 01:01 Chief Complaint:: flank pain History of Present Illness:: 58 yr old female with rt flank pain since yest with blood from bladder or vaginal area Allergies:: Allergies Allergy/AdvReac Type Severity Reaction Status Date / Time No Known Allergies Allergy Verified 09/18/18 00:19 Vitals:: Vital Signs - 8 hr 09/18/18 00:20 Temp 97.3 F HR 67 RR 18 BP 162/96 O2 Sat % 94 ED Review of Systems - Review of Systems General/Constitutional: No fever, No chills, No weight loss, No weakness, No diaphoresis, No edema, No loss of appetite Skin: No skin lesions, No rash, No bruising Head: No headache, No light-headedness Eyes: No loss of vision, No pain, No diplopia ENT: No earache, No nasal drainage, No sore throat, No tinnitus Neck: No neck pain, No swelling, No thyromegaly, No stiffness, No mass noted Cardio Vascular: No chest pain, No palpitations, No PND, No orthopnea, No edema Pulmonary: No SOB, No cough, No sputum, No wheezing GI: No nausea, No vomiting, No diarrhea, No pain, No melena, No hematochezia, No constipation, No hematemesis G/U: Other (flank pain) Musculoskeletal: No bone or joint pain, No back pain, No muscle pain Endocrine: No polyuria, No polydipsia Psychiatric: No prior psych history, No depression, No anxiety, No suicidal ideation Hematopoietic: No bruising, No lymphadenopathy Allergic/Immuno: No urticaria, No angioedema Neurological: No syncope, No focal symptoms, No weakness, No paresthesia, No headache, No seizure, No dizziness, No confusion, No vertigo ED Past Medical History - Past Medical History Past Medical History: HTN Family Medical History - Family Member Mother History Unknown: Yes Father History Unknown: Yes Ethnicity: Non- Living Status: Still Living Hx Family Cancer: No Hx Family Coronary Artery Disease: No Hx Family Congestive Heart Failure: No Hx Family Hypertension: Yes Hx Family Stroke: No Hx Family Diabetes: No Hx Family Seizures: No Hx Family Dementia: No Hx Family AIDS: No Hx Family HIV: No Hx Family COPD: No Hx Family Hepatitis: No Hx Family Psychiatric Problems: No Hx Family Tuberculosis: No ED Physical Exam - Physical Examination General/Constitutional: Awake, Well-developed, well-nourished, Alert, No distress, GCS 15, Non-toxic appearing, Ambulatory Head: Atraumatic Eyes: Lids, conjuctiva normal, PERRL, EOMI Skin: Nl inspection, No rash, No skin lesions, No ecchymosis, Well hydrated, No lymphadenopathy ENMT: External ears, nose nl, Nasal exam nl, Lips, teeth, gums nl Neck: Nontender, Full ROM w/o pain, No JVD, No nuchal rigidity, No bruit, No mass, No stridor Respiratory: Nl effort/Exclusion, Clear to Auscultation, No Wheeze/Rhonchi/Rales Cardio Vascular: RRR, No murmur, gallop, rubs, NL S1 S2 GI: No tenderness/rebounding/guarding, No organomegaly, No hernia, Normal BS's, Nondistended, No mass/bruits, No McBurney tenderness : No CVA tenderness Extremities: No tenderness or effusion, Full ROM, normal strength in all extremities, No edema, Normal digits & nails Neuro/Psych: Alert/oriented, DTR's symmetric, Normal sensory exam, Normal motor strength, Judgement/insight normal, Mood normal, Normal gait, No focal deficits Misc: Normal back, No paraspinal tenderness ED Assessment - Assessment General Assessment: rt flank pain ED Septic Shock - . Is Septic Shock (SBP<90, OR Lactate>4 mmol\L) present?: No - <6hrs of presentation: Vital Signs: Vital Signs - 8 hr 09/18/18 00:20 Temp 97.3 F HR 67 RR 18 BP 162/96 O2 Sat % 94 ED Reassessment (Disposition) - Reassessment Reassessment:: rt flank pain - Diagnosis Diagnosis:: rt flank pain - Patient Disposition Discharge/Transfer:: Home Condition at Disposition:: Stable
[2018-09-18 01:23] LABS: URINE SOURCE CLEAN C
[2018-09-18 01:29] LABS: % EOSINOPHILS 1.7 % (0.0-5.0); % LYMPHOCYTES 27.1 % (20.0-50.0); % MONOCYTES 2.7 % (2.0-10.0); % NEUTROPHILS 68.5 % (40.0-80.0); EOSINOPHILE ABSOLUTE 0.2 Th/cmm (0.1-0.4); HEMATOCRIT 36.5 % (41.0-60); HEMOGLOBIN 12.2 gm/dL (12-16); MEAN CELL VOLUME 82.4 fl (81-100); MEAN CORPUSCULAR HEMOGLOBIN 27.5 pg (27.0-31.0); MEAN CORPUSCULAR HGB CONC 33.4 pg (28.0-36.0); MONOCYTE ABSOLUTE 0.3 Th/cmm (0.3-1.0); NEUTROPHILE ABSOLUTE 7.5 Th/cmm (1.8-8.0); PLATELET COUNT 317 Th/cmm (150-400); RED BLOOD COUNT 4.43 Mil/cmm (3.80-5.10); RED CELL DISTRIBUTION WIDTH 13.7 % (11.5-20.0)
[2018-09-18 01:40] LABS: URINE BILIRUBIN NEGATIVE (NEGATIVE); URINE BLOOD LARGE (NEGATIVE); URINE GLUCOSE (UA) NEGATIVE (NEGATIVE); URINE KETONE NEGATIVE (NEGATIVE); URINE LEUKOCYTE ESTERASE MODERATE (NEGATIVE); URINE MICROSCOPIC INDICATED? YES; URINE NITRATE POSITIVE (NEGATIVE); URINE PROTEIN 30 mg/dL (NEGATIVE); URINE UROBILINOGEN 0.2 E.U./dL (0.2 - 1.0)
[2018-09-18 01:44] LABS: ALB/GLOB RATIO 1.5 (1.0-1.8); ALBUMIN 4.3 gm/dL (3.7-5.3); ALKALINE PHOSPHATASE 81 U/L (34-104); ANION GAP 13.3 (7.0-16.0); BILIRUBIN,TOTAL 0.6 mg/dL (0.3-1.0); BUN - UREA NITROGEN 20 mg/dL (7-25); CALCIUM SERUM 9.7 mg/dL (8.6-10.3); CARBON DIOXIDE 27.7 mEq/L (21.0-31.0); CHLORIDE 100 mEq/L (98-107); CREATININE - SERUM 0.9 mg/dL (0.6-1.2); GFR AFRICAN-AMERICAN > 60.0 ml/min (>90); GFR NON AFRICAN-AMERICAN > 60.0 ml/min; GLUCOSE 112 mg/dL (70-105); SGOT 21 U/L (13-39); SGPT/ALT 11 U/L (7-52); SODIUM SERUM 138 mEq/L (136-145); TOTAL PROTEIN,SERUM 7.2 gm/dL (6.0-8.3)
[2018-09-18 01:46] LABS: URINE CLARITY HAZY (CLEAR); URINE COLOR YELLOW
[2018-09-18 01:49] LABS: URINE EPITHELIAL CELLS FEW /lpf (FEW); URINE WBC 50-100 /hpf (0-5)
[2018-09-18 01:50] LABS: URINE BACTERIA 1+ /hpf (NONE SEEN)
[2018-09-18] MEDS ORDERED: KCL 20mEq/100mL Premix 20 MEQ/100 ML PIGGYBACK IV ONE ×2 (01:57→02:17)
[2018-09-18] MEDS ORDERED: Potassium Chloride 20 mEq ER Tab PO ONE ×2 (01:58→02:17)
[2018-09-18] MEDS ORDERED: cefTRIAXone 1 GM in Sodium Chloride 0.9% 50 ML IV SCH (02:45)
[2018-09-18] MEDS ORDERED: Morphine Sulfate 4 mg/mL 1mL Syr ONE (03:15)
--- NOTE | 2018-09-18 07:34 | Diagnostic Imaging Report ---
Exam: CT examination of the abdomen pelvis HISTORY: Right flank pain Total DLP equals 458 CTDI equals 10.3 Findings: Multiple views of the section of the abdomen pelvis were obtained without administration of contrast material the study was correlated with the prior exam of 03/25/2018 The study demonstrates that well aerated lung parenchyma the bases Small hiatal hernia is noted. The liver and spleen are intact. The pancreas is normal. The gallbladder is normal. The kidneys demonstrate nonobstructing 5 mm calculus in the right renal pelvis. No free fluid is noted. Abdominal aorta is calcified. The bowel gas summation nonspecific. There is no evidence of diverticular disease diverticulitis. Appendix is intact. The uterus is intact. Urinary bladder contracted with urinary bladder wall thickening. Clinical correlation recommended studies cannot be excluded. Bony structures intact there is no evidence for lytic or blastic lesions. IMPRESSION: Small hiatal hernia. Unchanged appearance of the small nonobstructing right renal calculus. No evidence of hydronephrosis. Urinary bladder contracted wall thickening, cystitis cannot be excluded.
== END 2018-09-18 04:30 | disposition home or self-care (01) ==
LOC: ER 00:15
DX: R10.9 Unspecified abdominal pain (principal); I10 Essential (primary) hypertension
CPT/HCPCS: 36415-UA; 80053-TC; 81001-TC; 85025-TC; 87086-90; J0696; J1885; J2405; J3480; J7030

== ENCOUNTER 2018-09-25 17:18 | Emergency (ER) | payer MEDICAID ==
[2018-09-25] MEDS ORDERED: Pantoprazole 40 mg EC Tab PO STA (19:09)
--- NOTE | 2018-09-25 19:09 | ED Physician Chart ---
ED Chief Complaint/HPI - Patient Information Date Seen:: 09/25/18 Time Seen:: 19:06 Chief Complaint:: epigastric pain History of Present Illness:: 58 yr old female with hx of htn here for epigastric pain for 4 hrs after food some nausea vomiting Allergies:: Allergies Allergy/AdvReac Type Severity Reaction Status Date / Time No Known Allergies Allergy Verified 09/25/18 17:28 Vitals:: Vital Signs - 8 hr 09/25/18 17:32 Temp 96.3 F HR 89 RR 18 BP 160/107 O2 Sat % 99 ED Past Medical History - Past Medical History Past Medical History: HTN Family Medical History - Family Member Mother History Unknown: Yes Father History Unknown: Yes Ethnicity: Non- Living Status: Still Living Hx Family Cancer: No Hx Family Coronary Artery Disease: No Hx Family Congestive Heart Failure: No Hx Family Hypertension: Yes Hx Family Stroke: No Hx Family Diabetes: No Hx Family Seizures: No Hx Family Dementia: No Hx Family AIDS: No Hx Family HIV: No Hx Family COPD: No Hx Family Hepatitis: No Hx Family Psychiatric Problems: No Hx Family Tuberculosis: No ED Assessment - Assessment General Assessment: epigastric pain ED Septic Shock - . Is Septic Shock (SBP<90, OR Lactate>4 mmol\L) present?: No - <6hrs of presentation: Vital Signs: Vital Signs - 8 hr 09/25/18 17:32 Temp 96.3 F HR 89 RR 18 BP 160/107 O2 Sat % 99 ED Reassessment (Disposition) - Reassessment Reassessment:: epigastric pain - Diagnosis Diagnosis:: as above - Patient Disposition Discharge/Transfer:: Home Condition at Disposition:: Stable
[2018-09-25 19:22] LABS: URINE SOURCE CLEAN C
[2018-09-25] MEDS ORDERED: Pantoprazole 40 mg EC Tab PO ONE (19:22)
[2018-09-25 19:24] LABS: MEAN CELL VOLUME 82.6 fl (81-100)
[2018-09-25 19:26] LABS: URINE BILIRUBIN NEGATIVE (NEGATIVE); URINE BLOOD NEGATIVE (NEGATIVE); URINE GLUCOSE (UA) NEGATIVE (NEGATIVE); URINE KETONE 40 mg/dL (NEGATIVE); URINE LEUKOCYTE ESTERASE NEGATIVE (NEGATIVE); URINE NITRATE NEGATIVE (NEGATIVE); URINE PROTEIN NEGATIVE (NEGATIVE); URINE UROBILINOGEN 0.2 E.U./dL (0.2 - 1.0)
[2018-09-25 19:33] LABS: URINE CLARITY CLEAR (CLEAR); URINE COLOR YELLOW
[2018-09-25 19:36] LABS: URINE EPITHELIAL CELLS FEW /lpf (FEW); URINE MICROSCOPIC INDICATED? YES; URINE WBC 0-2 /hpf (0-5)
[2018-09-25 19:37] LABS: URINE BACTERIA 1+ /hpf (NONE SEEN)
[2018-09-25 19:38] LABS: ALB/GLOB RATIO 1.6 (1.0-1.8); ALBUMIN 4.7 gm/dL (3.7-5.3); ANION GAP 21.2 (7.0-16.0); BILIRUBIN,TOTAL 0.5 mg/dL (0.3-1.0); CALCIUM SERUM 10.1 mg/dL (8.6-10.3); CARBON DIOXIDE 20.9 mEq/L (21.0-31.0); GFR AFRICAN-AMERICAN 33.1 ml/min (>90); GFR NON AFRICAN-AMERICAN 27.4 ml/min; POTASSIUM SERUM 3.1 mEq/L (3.5-5.1); TOTAL PROTEIN,SERUM 7.7 gm/dL (6.0-8.3)
[2018-09-25 19:55] LABS: % BASOPHILS 1.6 % (0.0-2.0); % EOSINOPHILS 0.4 % (0.0-5.0); % MONOCYTES 1.7 % (2.0-10.0); % NEUTROPHILS 85.3 % (40.0-80.0); BASOPHILE ABSOLUTE 0.2 Th/cumm (0-0.2); EOSINOPHILE ABSOLUTE 0.1 Th/cmm (0.1-0.4); HEMATOCRIT 38.1 % (41.0-60); HEMOGLOBIN 12.3 gm/dL (12-16); LYMPHOCYTE ABSOLUTE 1.4 Th/cmm (1.5-3.0); MEAN CORPUSCULAR HEMOGLOBIN 26.7 pg (27.0-31.0); MEAN CORPUSCULAR HGB CONC 32.4 pg (28.0-36.0); MONOCYTE ABSOLUTE 0.2 Th/cmm (0.3-1.0); NEUTROPHILE ABSOLUTE 11.1 Th/cmm (1.8-8.0); PLATELET COUNT 315 Th/cmm (150-400); RED BLOOD COUNT 4.61 Mil/cmm (3.80-5.10); RED CELL DISTRIBUTION WIDTH 13.8 % (11.5-20.0)
[2018-09-25] MEDS ORDERED: Potassium Chloride 20 mEq ER Tab PO ONE ×2 (19:56→20:30)
== END 2018-09-25 21:00 | disposition home or self-care (01) ==
LOC: ER 17:18
DX: R10.13 Epigastric pain (principal); R11.2 Nausea with vomiting, unspecified; I10 Essential (primary) hypertension
CPT/HCPCS: 99284; 96372; 36415; 85025; 81001; 80053; Q0162; J1885; Z7610